=== PATIENT | female | born 1985 | race African-American/Black ===

== ENCOUNTER 2025-05-18 16:32 | Emergency (ER) | payer OTHER ==
[~2025-05-18] VITALS: Ht 162.6 cm; Wt 61.7 kg
[2025-05-18] MEDS ORDERED: MECLIZINE HCL 25 MG TABLET ONE (16:57)
[2025-05-18 16:58] LABS: PLATELET COUNT (AUTO) 449 K/uL (150-450); RED BLOOD CELL COUNT(AUTO) 3.85 MIL/uL (4.0-5.2); RED CELL DISTRIBUTION WIDTH 16.4 % (11.5-15.0); WHITE BLOOD COUNT (AUTO) 12.1 K/uL (4.3-11.0)
[2025-05-18] MEDS ORDERED: LORAZEPAM INJ 2 MG/ML VIAL ONE (16:58)
[2025-05-18] MEDS: LORAZEPAM INJ 2 MG/ML VIAL IV ONE (17:00)
[2025-05-18] MEDS: IV NS 0.9% 1,000 ML BAG IV ONE (17:00)
[2025-05-18 17:05] LABS: CALCIUM, SERUM 8.9 mg/dL (8.5-10.1); CREATININE 1.0 mg/dL (0.6-1.3); SODIUM SERUM 137.0 mmol/L (136-145); UREA NITROGEN, BLOOD 11.0 mg/dL (7-18)
[2025-05-18] MEDS: MECLIZINE HCL 25 MG TABLET PO ONE (17:10)
[2025-05-18] MEDS ORDERED: MECL-159 PO (17:32)
[2025-05-18 20:04] VITALS: BP 132/84; TEMP 98.6; O2SAT 100
== END 2025-05-18 20:05 | disposition home or self-care (01) ==
LOC: ER 16:44
DX: H81.399 Other peripheral vertigo, unspecified ear (principal); D57.1 Sickle-cell disease without crisis; Z88.1 Allergy status to other antibiotic agents
CPT/HCPCS: 99283; 96374; 96361; 85025; 80048; 36415; J8597; J2060; J7030